=== PATIENT | male | born 1995 | race Caucasian/White ===

== ENCOUNTER → 2022-02-04 | Emergency (ER) | payer SELFPAY ==
[~2022-02-04] VITALS: Ht 165.1 cm; Wt 75.0 kg
[~2022-02-04] MED LIST: ACETAMINOPHEN 325MG TABLET PO ONE; IBUP-2029 MT; IBUPROFEN 400MG TABLET PO ONE; IBUPROFEN 600MG TABLET PO ONE
[2022-02-04 20:49] VITALS: BP 112/78
== END | disposition home or self-care (01) ==
LOC: ER 17:50
DX: S93.502A Unspecified sprain of left great toe, initial encounter (principal); S90.112A Contusion of left great toe without damage to nail, initial encounter; W21.02XA Struck by soccer ball, initial encounter; Y93.66 Activity, soccer; Y92.89 Other specified places as the place of occurrence of the external cause
CPT/HCPCS: 73630; 99283